=== PATIENT | female | born 1980 | race African-American/Black ===

== ENCOUNTER → 2019-02-11 | Outpatient (CLI) | payer BC ==
--- NOTE | 2019-02-11 19:28 | EKG REPORT ---
SEVERITY:- NORMAL ECG - SINUS RHYTHM : Confirmed by: Neva Andujar MD 11-Feb-2019 19:27:32
== END ==
LOC: OD 10:27
PROVIDERS: ATTEND Obstetrics & Gynecology Gynecology
DX: R00.0 Tachycardia, unspecified (principal)
CPT/HCPCS: 93005; 93010; 93041; 93042